=== PATIENT | female | born 1960 | race Caucasian/White ===

== ENCOUNTER → 2022-02-17 | Outpatient (CLI) | payer MEDICAID, SELFPAY ==
--- NOTE | 2022-02-17 09:49 | VDUE_ITS ---
Reason For Study: ESRD Right Arm Left Arm Right Cephalic Vein at the wrist measures Left Cephalic Vein at the wrist measures 0.19 x 0.20 cm. 0.26 x 0.26 cm. Right Cephalic Vein in the forearm measures Left Cephalic Vein in the forearm measures 0.25 x 0.25 cm. 0.31 x 0.32 cm. Right Cephalic Vein below antecub measures Left Cephalic Vein below antecub measures 0.32 x 0.33 cm. 0.34 x 0.34 cm. Right Cephalic Vein above antecub measures Left Cephalic Vein above antecub measures 0.52 x 0.54 cm. 0.49 x 0.52 cm. Right Cephalic Vein mid bicep measures 0.46 Left Cephalic Vein at mid bicep measures x 0.48 cm. 0.49 x 0.51 cm. Right Cephalic Vein at the shoulder measures Left Cephalic Vein at the shoulder measures 0.42 x 0.41 cm. 0.42 x 0.43 cm. Right Basilic Vein at the origin measures Basilic vein at origin measures 0.49 x 0.49 0.58 x 0.60 cm. cm. Right Basilic Vein mid bicep measures 0.44 x Basilic vein at bicep measures 0.43 x 0.43 0.45 cm. cm. Right Basilic Vein above antecub measures Basilic vein above antecub measures 0.45 x 0.37 x 0.39 cm. 0.45 cm. Right Brachial artery measures 0.48 x 0.49 Left Brachial artery measures 0.43 x 0.43 cm cm with a velocity of 108.9 cm/sec. with a velocity of 92.3 cm/sec. Right Radial artery measures 0.24 x 0.25 cm Left Radial artery measures 0.26 x 0.25 cm with a velocity of 94.1 cm/sec. with a velocity of 99.6 cm/sec. VL/Dialysis Vein Map PRE-OP BILAT Interpretation Summary Bilateral cephalic and basilic veins adequate. Ordering Physician: Fede Alonzo Performed By: Yeni Jean RVT ???
== END | disposition home or self-care (01) ==
PROVIDERS: Referring Provider Surgery Vascular Surgery; Visit Provider Surgery Vascular Surgery
DX: N18.6 End stage renal disease (principal)
CPT/HCPCS: 93985